=== PATIENT | male | born 1955 | race Caucasian/White ===

== ENCOUNTER 2020-06-05 10:03 | Emergency (ER) | payer OTHER ==
[~2020-06-05] VITALS: Ht 170.2 cm; Wt 77.3 kg
[~2020-06-05 10:03] MED LIST: ACET-2080 PO; DICL25 PO
[2020-06-05] MEDS ORDERED: ACET-784 PO (10:09)
[2020-06-05] MEDS ORDERED: IBUPROFEN 600 MG TABLET PO ONE (11:15)
[2020-06-05 12:36] VITALS: BP 129/81
== END 2020-06-05 12:45 | disposition home or self-care (01) ==
LOC: EMS 10:03
DX: S83.92XA Sprain of unspecified site of left knee, initial encounter (principal); X50.1XXA Overexertion from prolonged static or awkward postures, initial encounter; Y93.89 Activity, other specified; Y92.89 Other specified places as the place of occurrence of the external cause; Y99.8 Other external cause status
CPT/HCPCS: 99283